=== PATIENT | female | born 1960 | race Caucasian/White ===

== ENCOUNTER 2021-08-22 14:43 | Outpatient (CLI) | payer OTHER, SELFPAY ==
[2021-08-22 20:14] LABS: Hematocrit 39.5 % (37.0-47.0); Hemoglobin 13.3 g/dL (12.0-15.0); Mean Corpuscular HGB Conc 33.7 g/dl (32-36); Mean Corpuscular Hemoglobin 29.9 pg (26-34); Mean Corpuscular Volume 88.8 fl (80-100); Mean Platelet Volume 11.5 fl (7.4-10.4); Platelet Count Result 268 k/mm3 (150-375); Red Blood Count 4.45 M/mm3 (4.2-5.4); Red Cell Distribution Width 11.9 % (11.5-14.5); White Blood Count 6.8 K/mm3 (4.5-10.0)
[2021-08-22 20:28] LABS: Alanine Aminotransferase 17 U/L (4-35); Albumin Level 4.7 g/dL (3.5-5.1); Alkaline Phosphatase 77 U/L (38-126); Anion Gap 8 mmol/L (8-16); Aspartate Amino Transferase 25 U/L (14-36); Bilirubin,Total 0.7 mg/dL (0.2-1.3); Blood Urea Nitrogen 13 mg/dL (7-17); Calcium 9.5 mg/dL (8.4-10.2); Carbon Dioxide 25 mmol/L (22-30); Chloride 107 mmol/L (98-107); Cholesterol 186 mg/dL (0-200); Estimated Glomerular Filt Rate > 60; Glucose 89 mg/dL (65-110); HDL Direct 55 mg/dL; Potassium 3.6 mmol/L (3.4-5.0); Sodium 140 mmol/L (137-145); Triglycerides 208 mg/dL (<150)
[2021-08-22 20:38] LABS: LDL Cholesterol Direct 104 mg/dL
== END 2021-08-22 14:44 | disposition home or self-care (01) ==
PROVIDERS: PCP Family Medicine; Visit Provider Family Medicine
DX: Z00.00 Encounter for general adult medical examination without abnormal findings (principal)
CPT/HCPCS: 36415; 80053; 80061; 85027

== ENCOUNTER 2022-02-01 15:37 | Outpatient (CLI) | payer OTHER, SELFPAY ==
--- NOTE | ~2022-02-01 | XR_ITS ---
XR sacroiliac joints min 3V DATE: 02/01/2022 16:04 INDICATION: Sacrococcygeal disorder TECHNIQUE: AP and bilateral oblique views COMPARISON: None FINDINGS: The pubic symphysis and sacroiliac joints are intact. No fracture, dislocation, erosive tammi nge or ankylosis is noted. IMPRESSION: No significant abnormality Reviewed, dictated and finalized at Location [facility]. Reviewed, dictated and finalized at location A. IMPRESSION: No significant abnormality
--- NOTE | ~2022-02-01 | XR_ITS ---
XR foot LT min 3V DATE: 02/01/2022 16:05 INDICATION: Left anterior foot pain after injury TECHNIQUE: 4 views COMPARISON: None FINDINGS: No fracture or dislocation, periosteal reaction or bone destruction. Joint spaces are prese rved. No erosive changes. No calcaneal enthesopathy. IMPRESSION: No significant abnormality Reviewed, dictated and finalized at location A. IMPRESSION: No significant abnormality
== END 2022-02-01 15:38 | disposition home or self-care (01) ==
LOC: ANHBWCIMG 15:41
PROVIDERS: PCP Family Medicine; Visit Provider Family Medicine
DX: M53.3 Sacrococcygeal disorders, not elsewhere classified (principal); G89.29 Other chronic pain
CPT/HCPCS: 72202; 73630

== ENCOUNTER 2022-08-28 09:53 | Outpatient (CLI) | payer OTHER, SELFPAY ==
--- NOTE | ~2022-08-28 | XR_ITS ---
EXAMINATION: [id number] DATE: 08/28/2022 10:06 INDICATION: Fall. Left posterior lower rib pain. TECHNIQUE: A frontal view of the chest and 2 views on 3 radiographs of the left ribs were obtained. COMPARISON: None. FINDINGS: There is mild scarring at the lung apices. No pleural effusion or pneumothorax. The heart s ize is normal. IMPRESSION: 1. No rib fracture. Reviewed, dictated and finalized at location A. RITIES TRADER IMPRESSION: 1. No rib fracture.
== END 2022-08-28 09:54 | disposition home or self-care (01) ==
LOC: ANHBWCIMG 09:54
PROVIDERS: PCP Family Medicine; Visit Provider Family Medicine
DX: R07.81 Pleurodynia (principal)
CPT/HCPCS: 71101

== ENCOUNTER 2022-09-04 14:46 | Outpatient (CLI) | payer OTHER, SELFPAY ==
--- NOTE | ~2022-09-04 | XR_ITS ---
EXAMINATION: [id number] INDICATION: Pleurodynia TECHNIQUE: Three views of bilateral ribs are obtained. COMPARISON: None available FINDINGS: There are minimal airspace opacities of the left lung base. No pleural effusion or pneumoth orax. The cardiomediastinal silhouette is normal. No displaced rib fracture is seen. IMPRESSION: 1. Minimal left basilar airspace opacity, consistent with atelectasis versus pneumonia. 2. No evidence of displaced rib fracture. Reviewed, dictated and finalized at location B. ON HAND IMPRESSION: 1. Minimal left basilar airspace opacity, consistent with atelectasis versus pn eumonia. 2. No evidence of displaced rib fracture.
== END 2022-09-04 14:47 | disposition home or self-care (01) ==
PROVIDERS: PCP Family Medicine; Visit Provider Family Medicine
DX: R07.81 Pleurodynia (principal); R91.8 Other nonspecific abnormal finding of lung field
CPT/HCPCS: 71110

== ENCOUNTER 2022-11-20 15:27 | Outpatient (CLI) | payer OTHER, SELFPAY ==
[2022-11-20 18:39] LABS: Alanine Aminotransferase 18 U/L (6-35); Albumin Level 4.5 g/dL (3.5-5.1); Alkaline Phosphatase 75 U/L (38-126); Alkaline Phosphatase 76 U/L (38-126); Anion Gap 5 mmol/L (8-16); Aspartate Amino Transferase 28 U/L (14-36); Aspartate Amino Transferase 36 U/L (14-36); Bilirubin,Total 0.6 mg/dL (0.2-1.3); Blood Urea Nitrogen 12 mg/dL (7-17); Calcium 8.9 mg/dL (8.4-10.2); Carbon Dioxide 29 mmol/L (22-30); Chloride 106 mmol/L (98-107); Estimated Glomerular Filt Rate > 60; Glucose 123 mg/dL (65-110); Potassium 3.9 mmol/L (3.4-5.0); Sodium 140 mmol/L (137-145)
[2022-11-20 19:02] LABS: Basophils Absolute Auto 0.1 K/mm3 (0.0-0.1); Basophils Percent Auto 0.8 % (0.2-1.2); Eosinophils Absolute Auto 0.2 K/mm3 (0-0.3); Eosinophils Percent Auto 2.9 % (0-4.4); Hematocrit 40.5 % (37.0-47.0); Immature Granulocyte Absolute 0.02 K/mm3 (0.00-0.031); Immature Granulocyte Percent A 0.3 % (0-0.5); Lymphocytes Absolute Auto 2.15 K/mm3 (0.9-3.2); Lymphocytes Percent Auto 33.3 % (18.3-44.2); Mean Corpuscular HGB Conc 32.1 g/dl (32-36); Mean Corpuscular Hemoglobin 29.5 pg (26-34); Mean Corpuscular Volume 91.8 fl (80-100); Mean Platelet Volume 11.7 fl (7.4-10.4); Monocytes Absolute Auto 0.4 K/mm3 (0.1-0.6); Monocytes Percent Auto 6.7 % (2.6-8.5); Neutrophils Absolute Auto 3.6 K/mm3 (1.3-6.7); Platelet Count Result 289 k/mm3 (150-375); Red Blood Count 4.41 M/mm3 (4.2-5.4); Red Cell Distribution Width 12.2 % (11.5-14.5); White Blood Count 6.5 K/mm3 (4.5-10.0)
== END 2022-11-20 15:28 | disposition home or self-care (01) ==
LOC: ANHBWCLAB 15:28
PROVIDERS: PCP Family Medicine; Visit Provider Nurse Practitioner Family
DX: Z00.00 Encounter for general adult medical examination without abnormal findings (principal); B35.1 Tinea unguium
CPT/HCPCS: 36415; 80053; 80076; 85025

== ENCOUNTER 2023-03-20 14:55 | Outpatient (CLI) | payer OTHER, SELFPAY ==
[2023-03-20 19:05] LABS: Hematocrit 39.6 % (37.0-47.0); Hemoglobin 12.9 g/dL (12.0-15.0); Mean Corpuscular HGB Conc 32.6 g/dl (32-36); Mean Corpuscular Hemoglobin 29.7 pg (26-34); Mean Corpuscular Volume 91.2 fl (80-100); Mean Platelet Volume 11.6 fl (7.4-10.4); Platelet Count Result 272 k/mm3 (150-375); Red Blood Count 4.34 M/mm3 (4.2-5.4); Red Cell Distribution Width 12.4 % (11.5-14.5); White Blood Count 7.8 K/mm3 (4.5-10.0)
[2023-03-20 19:40] LABS: Alanine Aminotransferase 28 U/L (6-35); Albumin Level 4.3 g/dL (3.5-5.1); Alkaline Phosphatase 79 U/L (38-126); Amylase 82 U/L (30-110); Anion Gap 3 mmol/L (8-16); Aspartate Amino Transferase 65 U/L (14-36); Bilirubin,Total 0.6 mg/dL (0.2-1.3); Blood Urea Nitrogen 11 mg/dL (7-17); Calcium 8.6 mg/dL (8.4-10.2); Carbon Dioxide 26 mmol/L (22-30); Chloride 105 mmol/L (98-107); Estimated Glomerular Filt Rate > 60; Glucose 95 mg/dL (65-110); Lipase 177 U/L (23-300); Potassium 4.1 mmol/L (3.4-5.0); Sodium 134 mmol/L (137-145)
== END 2023-03-20 14:56 | disposition home or self-care (01) ==
LOC: ANHBWCLAB 15:00
PROVIDERS: PCP Nurse Practitioner Adult Health; Visit Provider Nurse Practitioner Adult Health
DX: K52.9 Noninfective gastroenteritis and colitis, unspecified (principal)
CPT/HCPCS: 36415; 80053; 82150; 83690; 85027

== ENCOUNTER 2023-09-06 14:55 | Outpatient (CLI) | payer OTHER, SELFPAY ==
[2023-09-06 19:29] LABS: Appearance Urine Clear (Clear); Bacteria Urine None Seen /hpf; Bilirubin Urine Negative (Negative); Blood Urine Negative (Negative); Color Urine Yellow (Yellow); Glucose Urine UA Negative (Negative); Ketones Urine Trace mg/dL (Negative); Leukocyte Esterase Ur Trace LEU/UL (NEGATIVE); Nitrate Urine Negative (Negative); Non Pathogenic Casts 0-2; Protein Urine Negative (Negative); RBC Urine 0-2 /hpf (0-2); Specific Grav Ur 1.021 (1.001-1.035); Squamous Epithelial Cell Urine None seen /hpf (Few); WBC Urine 0-5 /hpf (0-3); pH Urine 5.5 (5.0-9.0)
[2023-09-06 19:37] LABS: Hematocrit 44.5 % (37.0-47.0); Hemoglobin 14.2 g/dL (12.0-15.0); Mean Corpuscular HGB Conc 31.9 g/dl (32-36); Mean Corpuscular Hemoglobin 29.5 pg (26-34); Mean Corpuscular Volume 92.3 fl (80-100); Mean Platelet Volume 11.5 fl (7.4-10.4); Platelet Count Result 354 k/mm3 (150-375); Red Blood Count 4.82 M/mm3 (4.2-5.4); Red Cell Distribution Width 12.1 % (11.5-14.5); White Blood Count 11.6 K/mm3 (4.5-10.0)
[2023-09-06 19:42] LABS: Anion Gap 6 mmol/L (8-16); Blood Urea Nitrogen 17 mg/dL (7-17); Calcium 9.2 mg/dL (8.4-10.2); Carbon Dioxide 29 mmol/L (22-30); Chloride 102 mmol/L (98-107); Estimated Glomerular Filt Rate > 60; Glucose 99 mg/dL (65-110); Potassium 3.9 mmol/L (3.4-5.0); Sodium 137 mmol/L (137-145)
[2023-09-06 19:47] LABS: Add Urine Microscopic? YES
== END 2023-09-06 14:56 | disposition home or self-care (01) ==
LOC: ANHBWCLAB 14:57
PROVIDERS: PCP Nurse Practitioner Adult Health; Visit Provider Nurse Practitioner Adult Health
DX: H93.19 Tinnitus, unspecified ear (principal); R39.9 Unspecified symptoms and signs involving the genitourinary system
CPT/HCPCS: 36415; 80048; 81001; 85027

== ENCOUNTER 2023-11-17 08:01 | Emergency (ER) | payer OTHER, SELFPAY ==
[2023-11-17 08:16] VITALS: BP 153/81; PULSE 70; RESP 16; TEMP 36.6; O2SAT 100
--- NOTE | 2023-11-17 08:16 | ED_ITS ---
HPI - General Adult General Chief complaint: Skin/Abscess/Foreign Body Stated complaint: pos bite on toe,bump on calf Source: patient, RN notes reviewed and old records reviewed Mode of arrival: ambulatory Limitations: no limitations History of Present Illness HPI narrative: 63-year-old female presents to [facility] with complaints of rash on right 3rd toe this started few days ago. Patient states rash is painful. Patient tried athlete's foot medication with no relief. Patient also has rash to back of right leg the patient states is non itchy, nonpainful. Related Data Home Medications Medication Instructions Recorded Confirmed paroxetine HCl 10 mg tablet mg PO 11/17/23 Allergies Allergy/AdvReac Type Severity Reaction Status Date / Time No Known Allergies Allergy Verified 11/17/23 08:15 Review of Systems Constitutional: Constitutional: Reports no additional constitutional complaints, Denies body ache(s), Denies chills, Denies fatigue, Denies fever(s) and Denies headache(s) Eyes: Eyes: Reports no additional eye complaints and Denies blurry vision ENT: Reports system reviewed and no additional complaints, except as documented, Denies vertigo, Denies dizziness, Denies ear discharge, Denies otalgia, Denies facial pain, Denies headache(s), Denies nasal congestion, Denies nasal discharge, Denies sinus pain, Denies sinus pressure and Denies sore throat Cardiovascular: Cardiovascular: Reports no additional cardiovascular complaints, Denies chest pain, Denies chest pain at rest, Denies rapid heart rate and Denies dyspnea Respiratory: Respiratory: Reports no additional respiratory complaints, Denies chest congestion, Denies cough, Denies pain on inspiration, Denies pain with cough and Denies dyspnea Gastrointestinal: Gastrointestinal: Denies abdominal pain, Denies diarrhea, Denies nausea and Denies vomiting Integumentary/Breasts: Skin/Breast: Reports rash Neurologic: Reports system reviewed and no additional complaints, except as documented, Denies vertigo, Denies dizziness and Denies headache(s) Endocrine: Endocrine: Denies fatigue PMFSH Comments At the time of my signature, I reviewed and agree with the nursing past medical, surgical, social, and family history. There is no relevant family history pertinent to the patient complaint. Exam Const: General: cooperative, healthy appearing, no acute distress and well nourished Nutritional Appearance: well nourished Orientation/consci ousness: patient oriented x3 Limitations: no limitations HENMT: Head: normal to inspection and normocephalic Ears: external ears normal Face/Nose/Sinus: normal facial exam Face and sinus: normal facial exam Mouth: Yes Normal oral and palatal mucosa present, Yes oropharynx normal and Yes moist mucous membranes Eyes: General: appearance normal, both eyes and all related structures Sclera: sclerae normal Pupils: Equal, round and reactive pupils present Resp: Effort & Inspection: normal respiratory effort, able to speak in complete sentences, no audible wheezes, no cough, no respiratory distress and no retractions Skin: General skin exam: normal color Rashes: rashes noted ( vesicular rash to right 3rd toe) Other: macular rash to right calf Neuro: General: patient oriented x3 Cranial nerves: Yes Equal, round and reactive pupils present Psych: Appearance: grossly normal Mental Status: mental status grossly normal Speech and movement: Normal speech and movement present Affect: normal affect Course Course Emergency Course: Patient is aware of diagnosis, understands and agrees to treatment plan.? Anticipatory guidance given.? Patient agrees to follow-up as directed and is aware of reasons to seek care at the emergency department. Some parts of this dictation were generated by voice recognition software and may contain typographical and/or grammatical inaccuracies. Level of Care: Express Care Visit Vital Signs Vital signs: Reviewed Medical Decision Making MDM Narrative Medical decision making narrative: patient with rash to back of right leg and right 3rd toe. rash is different in appearance. Will treat for infected insect bite to toe in dermatitis to leg. Patient resting comfortably without signs or symptoms of acute distress, nontoxic appearing, vital signs stable. patient appropriate for discharge home and outpatient care, with instructions on close monitoring, close follow-up, and when to seek emergency care. Discharge instructions reviewed with patient, as well as provided in writing per nursing staff. The instructions also include specific and strict return/GO TO THE ER as well as f/u information. All questions have been answered, and the patient deny any further questions with discharge and discharge plan. Differential Diagnosis Differential Diagnosis: Infected insect bite, cellulitis, contact dermatitis, allergic dermatitis, shingles Medical Records Medical records reviewed: Yes I reviewed the external patient's medical records. Vital Signs Vital Signs: reviewed Lab Data Lab results reviewed: Yes I reviewed the patient's lab results. Discharge Plan Discharge Clinical Impression: Infected insect bite, Dermatitis Patient Disposition: Home, Self-Care Condition: Stable Instructions: Insect Bite or Sting (ED) Additional Instructions: Antibiotic as directed until completed. Apply cream to back of leg. Follow-up with your primary care physician 5-7 days if not improving Go to the emergency room for any worsening or concerning symptoms Patient Language: Malagasy Prescriptions: New cephalexin 500 mg capsule 500 mg PO Q8H 7 Days Qty: 21 0RF triamcinolone acetonide 0.5 % cream 1 applic topical BID 7 Days Qty: 15 0RF No Action paroxetine HCl 10 mg tablet PO Follow-up/Referrals: Lucio Mayorga MD [Primary Care Provider] - 1 Week ( [facility] care follow-up) Time of Disposition: 08:30
== END 2023-11-17 08:36 | disposition home or self-care (01) ==
PROVIDERS: Emergency Provider Registered Nurse; PCP Family Medicine
DX: S90.465A Insect bite (nonvenomous), left lesser toe(s), initial encounter (principal); L08.9 Local infection of the skin and subcutaneous tissue, unspecified; W57.XXXA Bitten or stung by nonvenomous insect and other nonvenomous arthropods, initial encounter
CPT/HCPCS: 99213; G0463

== ENCOUNTER 2023-12-05 14:08 | Outpatient (CLI) | payer OTHER, SELFPAY | END 2023-12-05 14:09 | disposition home or self-care (01) | LOC: ANHBWCAUD 14:09 | PROVIDERS: PCP Family Medicine; Visit Provider Nurse Practitioner Adult Health | DX: H93.11 Tinnitus, right ear (principal); H90.3 Sensorineural hearing loss, bilateral | CPT/HCPCS: 92557; 92567 ==

== ENCOUNTER 2023-12-26 14:14 | Outpatient (CLI) | payer OTHER, SELFPAY | END 2023-12-26 14:15 | disposition home or self-care (01) | PROVIDERS: PCP Nurse Practitioner Adult Health; Visit Provider Nurse Practitioner Adult Health | DX: Z11.3 Encounter for screening for infections with a predominantly sexual mode of transmission (principal) | CPT/HCPCS: 36415; 86695; 86696 ==

== ENCOUNTER 2024-01-30 14:45 | Outpatient (CLI) | payer OTHER, SELFPAY ==
[2024-01-30 19:49] LABS: Appearance Urine Clear (Clear); Bacteria Urine None Seen /hpf; Bilirubin Urine Negative (Negative); Blood Urine Negative (Negative); Color Urine Yellow (Yellow); Glucose Urine UA Negative (Negative); Ketones Urine Negative (Negative); Leukocyte Esterase Ur Trace LEU/UL (Negative); Nitrate Urine Negative (Negative); Non Pathogenic Casts 0-2; Protein Urine Negative (Negative); RBC Urine 0-2 /hpf (0-2); Specific Grav Ur 1.005 (1.001-1.035); Squamous Epithelial Cell Urine None Seen /hpf (Few); Urobilinogen Urine 0.2 mg/dL (<2.0); WBC Urine 0-5 /hpf (0-3); pH Urine 7.5 (5.0-9.0)
[2024-01-30 19:50] LABS: Add Urine Microscopic? YES
== END 2024-01-30 14:46 | disposition home or self-care (01) ==
LOC: ANHBWCLAB 14:46
PROVIDERS: PCP Nurse Practitioner Adult Health; Visit Provider Nurse Practitioner Adult Health
DX: R39.9 Unspecified symptoms and signs involving the genitourinary system (principal)
CPT/HCPCS: 81001; 87086; 87088

== ENCOUNTER 2025-02-26 15:45 | Outpatient (CLI) | payer OTHER, SELFPAY ==
--- OUTSIDE RECORDS SUMMARY | 2025-02-26 15:48 | XMS_ITS | Clinical Summary ---
Author Organization [facility] Address [address] [place] [address] Phone Care Team Providers Care Manager Float Name Role Phone Halley Pino EMILY Primary Care Provider [phone] Allergies Active Allergy Reactions Criticality Noted Date Comments Doxycycline Vomiting Medium 11/07/2018 Medications loratadine (CLARITIN) 10 MG Tablet Take 1 Tab by mouth daily. 30 Tab 2 9 Active albuterol 108 (90 Base) MCG/ACT Aerosol Solution take 2 Puffs by inhalation every 4 hours as needed for Wheezing or Cough (SOB). 8.5 g 0 Active PARoxetine (PAXIL) 10 MG Tablet Take 1 tablet by mouth once daily 30 Tablet 2 Active Active Problems Problem Noted Date Diagnosed Date NATASHA (generalized anxiety disorder) 06/02/2024 Anxiety 06/02/2019 Elevated glucose level 02/17/2019 Skin cancer screening 02/17/2019 Depression 11/22/2018 Immunizations Immunization Administration Dates Next Due Influenza Vaccine 05/09/2016 Family History Medical History Relation Name Comments No Known Problems Brother Alzheimer's Disease Father Breast Cancer Maternal Aunt 1 Cancer Maternal Aunt 2 Breast Cancer Maternal Grandmother No Known Problems Mother 92 and long y healthy Relation Name Status Comments Brother Alive Father Maternal Aunt 1 Maternal Aunt 2 Maternal Grandmother Mother Alive Social History Tobacco Use Types Packs/Day Years Used Date Smoking Tobacco: Former Cigarettes 0.1 20 Smokeless Tobacco: Never Tobacco Cessation:Counseling Given: Not Answered Alcohol Use Standard Drinks/Week Comments Yes 10 (1 standard drink = 0.6 oz pu re alcohol) on occasion PHQ-2 Answer Date Recorded PHQ-2 Score 0 03/27/2019 Education Answer Date Recorded What is the highest level of school you have completed or the highest degree you have received? 12th grade 06/07/2020 Sexually Active Control Partners Comments Yes Male Comments No Sex and Gender Information Value Date Recorded Sex Assigned at Not on file Legal Sex Female 3:02 PM CDT Gender Identity Not on file Sexual Orientation Not on file Last Filed Vital Signs Vital Sign Reading Time Taken Comments Blood Pressure 138/70 11/06/2020 9:34 AM CDT Pulse 42 11/06/2020 9:34 AM CDT Temperature 36.1 C (97 F) 11/06/2020 9:34 AM CDT Respiratory Rate 16 06/03/2020 4:40 PM WIRELESS SALES EXPERT Oxygen Saturation 98% 11/06/2020 9:34 AM CDT Inhaled Oxygen Concentration - - Weight 66.2 kg (146 lb) 06/03/2020 4:40 PM WIRELESS SALES EXPERT Height 164.8 cm (5' 4.9) 06/03/2020 4:40 PM WIRELESS SALES EXPERT Body Mass Index 24.37 06/03/2020 4:40 PM WIRELESS SALES EXPERT Plan of Treatment Health Maintenance Due Date Last Done Comments Hepatitis C Virus (HCV) Screening 1962 TdaP Immunization 1962 HPV/Cotest 02/20/1992 Cologuard 2007 Pneumococcal Immunization (5 0+ years) (1 of 1 - PCV) 02/20/2012 Zoster Immunization (1 of 2) 02/20/2012 Mammogram 04/07/2015 04/07/2014, 03/22/2009 Immunochemical Fecal Occult Blood 08/26/2015 08/26/2014, 08/22/2011 Cervical Cancer Screening (CCS) 11/07/2021 Pap Smear 11/07/2021 11/07/2018, 11/07/2018 SARS-COV-2 Immunization ( season) 2024 06/10/2021, 05/20/2021 Influenza Immunization (#1) 2025 10/0 01/2021, 04/28/2020, 05/09/2016 Colonoscopy 07/30/2026 07/30/2016 Colorectal Cancer Screening 07/30/2026 Respiratory Syncytial Virus (RSV) Immunization (Adult) (1 - 1-dose 75+ series) 2037 Hepatitis B Immunization Aged Out No longer eligible based on patient's age to complete this topic Human Papillomavirus (HPV) Immunization Aged Out No longer eligible b ased on patient's age to complete this topic Meningococcal Immunization (ACWY) Aged Out No longer eligible b ased on patient's age to complete this topic Rotavirus Immunization Aged Out No lo nger eligible based on patient's age to complete this topic Goals Goal Patient Goal Type Associated Problems Recent Progress Patient-Stated? Author ANXIETY Anxiety Improving( 4:02 PM WIRELESS SALES EXPERT) Yes Christine Hsu, [facility] Note: I want to not over think in my relationship Goal/Objective: Decrease reactivity in relationship. Anticipated Time Frame for Goal Completion: 6 months Goal Reviewed with: patient Readiness to change: Ready to change Department associated with goal: [facility] Steps to achieve goal: will attend counseling/psychotherapy sessions at least once monthly at least 6 sessions , utilizing individual and/or group sessions to express thoughts and feelings. to identify, verbalize and process at least three contributing factors/triggers to anxiety and depression. T o identify at least two lifestyle changes/habits. to put into action, at least one lifestyle change/habit, for one month or longer, to reduce and or cope with anxiety and depression. Procedures Procedure Name Priority Date/Time Associated Diagnosis Comments STOOL, OCCULT BLOOD IMMUNOASSAY (IFOB) Routine 08/26/2014 BERENICE SCREENING BILATERAL WITH CAD Routine 04/07/2014 from Last 3 Months or Most Recently Relevant to Health Maintenance Results * STOOL, OCCULT BLOOD IMMUNOASSAY (IFOB) (08/26/2014) Specimen of unknown material (specimen) STOOL SPECIMEN / Unknown us Not On File Provider BODY FLUIDS & STOOLS ORDERA BLES Final Result * BERENICE SCREENING BILATERAL WITH CAD (04/07/2014) Anatomical Region Laterality Modality breast Bilateral Mammography us Not On File Provider IMG MAMMO ORDERABLES Final Result from Last 3 Months or Most Recently Relevant to Health Maintenance Insurance [facility] Care Teams Manager Float Relationship Specialty Start Date End Date Halley Pino APRN [address] [place] [address] PCP - General Advanced Practice Nurse 06/02/24
--- OUTSIDE RECORDS SUMMARY | 2025-02-26 15:48 | XMS_ITS | Clinical Summary ---
Author Organization [facility] Address [address] [place] [address] Care Team Providers Care Actimize Architect Name Role Phone Unavailable Primary Care Provider Unavailabl e Source Comments [facility],non-owned Affiliates and Associated Physician Practices is amultiple site organization consisting of ambulatory clinics and hospital sitesin [place], [place], [place] and [place]. This disclosure is being madepursuant to the Care Everywhere program and may not contain all information available regarding this patient. Last updated 18.[facility] Allergies No known active allergies Medications * Be aware that medications may not be up to date on this document. Alwaysverify current medications with the patient. No known medications Social History Tobacco Use Types Packs/Day Years Used Date Smoking Tobacco: Never Smokeless Tobacco: Never Comments No Sex and Gender Information Value Date Recorded Sex Assigned at Not on file Legal Sex Female 7:41 AM CDT Gender Identity Not on file Sexual Orientation Not on file Last Filed Vital Signs Vital Sign Reading Time Taken Comments Blood Pressure 136/82 02/08/2018 8:43 AM CDT Pulse 81 02/08/2018 8:43 AM CDT Temperature 36.3 C (97.4 F) 02/08/2018 8:43 AM CDT Respiratory Rate - - Oxygen Saturation 97% 02/08/2018 8:43 AM CDT Inhaled Oxygen Concentration - - Weight 63.5 kg (140 lb) 02/08/2018 8:43 AM CDT Height 167.6 cm (5' 6) 02/08/2018 8:43 AM CDT Body Mass Index 22.6 02/08/2018 8:43 AM CDT Plan of Treatment Health Maintenance Due Date Last Done Comments COLOGUARD (AGES 45-75) - COL ON CA SCREENING 1962 COLON MONITORING 1962 COLONOSCOPY - COLON CA SCREENING 1962 CT COLONOGRAPHY - COLON CA SCREENING 1962 Colorectal Cancer Screening 1962 FIT - COLON CA SCREENING 1962 FLEX SIG - COLON CA SCREENING 1962 LIPID TESTING 1962 MAMMOGRAM 1962 HIV SCREENING 1977 HEPATITIS C SCREENING 02/15/1980 DTAP/TDAP/TD VACCINES (1 - Tdap) 1981 PNEUMOCOCCAL VACCINE 50+ (1 of 1 - PCV) 02/20/2012 ZOSTER VACCINE (1 of 2) 02/20/2012 COVID-19 VACCINE (1 - 2023-2 5 season) 2024 DEPRESSION SCREENING 07/30/2024 INFLUENZA VACCINE (#1) 2025 Respiratory Syncytial Virus (RSV) Vaccine Pt: or over 60 yrs (1 - 1-dose 75+ series) 2037 HEPATITIS B VACCINE Aged Out No longe r eligible based on patient's age to complete this topic HIB VACCINE Aged Out No longer eligi ble based on patient's age to complete this topic HPV VACCINE Aged Out No longer eligi ble based on patient's age to complete this topic MENINGOCOCCAL (Group B) VACC INE SHARED DECISION-MAKING Aged Out No longer eligibl e based on patient's age to complete this topic MENINGOCOCCAL GROUPS A/C/Y/W VACCINE Aged Out No longer eligible b ased on patient's age to complete this topic
--- OUTSIDE RECORDS SUMMARY | 2025-02-26 15:48 | XMS_ITS | Clinical Summary ---
Author Organization [facility] [employer] [place] Address [address] [place] [address] [place] [address] Care Team Providers Care Bus And Trolley Inspecting Dispatcher Name Role Phone Lucio Mayorga MD Primary Care Provider [phone] Allergies Active Allergy Reactions Criticality Noted Date Comments Doxycycline Nausea and Vomiting Medium 11/07/2018 Medications loratadine (CLARITIN) 10 mg tablet Take 1 Tablet (10 mg) by mouth daily. 30 Tablet 3 12/08/2019 Active PARoxetine HCl (PAXIL) 10 mg tablet Take 1 Tablet (10 mg) by mouth daily. 90 Tablet 10/03/2023 Active Active Problems Problem Noted Date Diagnosed Date Anxiety 06/02/2019 Elevated glucose level 02/17/2019 Depression 11/22/2018 Encounters Date Type Department Care Team Description 01/20/2025 External Device Data [facility] ABSTRACTION Provider, Abstract 12/18/2024 External Device Data [facility] ABSTRACTION Provider, Abstract 12/17/2024 External Device Data [facility] ABSTRACTION Provider, Abstract 12/16/2024 External Device Data [facility] ABSTRACTION Provider, Abstract from Last 3 Months Immunizations Immunization Administration Dates Next Due Influenza Vaccine Tri Split 4+ Pf Im 05/09/2016 Family History Medical History Relation Name Comments No Known Problems Brother No Known Problems Daughter 1 No Known Problems Daughter 2 Unknown Father Cancer Maternal Grandfather Breast Cancer Maternal Grandmother No Known Problems Mother Unknown Paternal Grandfather Unknown Paternal Grandmother Relation Name Status Comments Brother Alive Daughter 1 Alive Daughter 2 Alive Father Maternal Grandfather Maternal Grandmother Mother Alive Paternal Grandfather Paternal Grandmother Social History Tobacco Use Types Packs/Day Years Used Date Smoking Tobacco: Former Smokeless Tobacco: Never Tobacco Cessation:Counseling Given: Not Answered Alcohol Use Standard Drinks/Week Comments Yes 0 (1 standard drink = 0.6 oz pur e alcohol) occasionally Comments No Sex and Gender Information Value Date Recorded Sex Assigned at Not on file Legal Sex Female 1:12 PM ASSOCIATE MANAGER AFFILIATE MARKETING Gender Identity Not on file Sexual Orientation Not on file Last Filed Vital Signs Vital Sign Reading Time Taken Comments Blood Pressure 110/64 11/07/2024 10:09 AM CDT Pulse 70 10/03/2023 8:52 AM ASSOCIATE MANAGER AFFILIATE MARKETING Temperature 36.8 C (98.3 F) 10/03/2023 8:52 AM ASSOCIATE MANAGER AFFILIATE MARKETING Respiratory Rate 16 10/03/2023 8:52 AM ASSOCIATE MANAGER AFFILIATE MARKETING Oxygen Saturation 100% 10/03/2023 8:52 AM ASSOCIATE MANAGER AFFILIATE MARKETING Inhaled Oxygen Concentration - - Weight 63.5 kg (140 lb) 11/07/2024 10:09 AM CDT Height 162.6 cm (5' 4) 11/07/2024 10:09 AM CDT Body Mass Index 24.03 11/07/2024 10:09 AM CDT Plan of Treatment Health Maintenance Due Date Last Done Comments DTAP/TDAP/TD VACCINES (1 - Tdap) 1981 HPV/Cotest (21-29) 1983 HPV/Cotest (30-65) 02/20/1992 FIT-DNA Q 3 years 2007 FIT/FOBT Q 1 year 2007 Flex Sig/CT Colonography Q 5 years 2007 ZOSTER VACCINE (1 of 2) 02/20/2012 BREAST CANCER SCREENING 04/07/2015 04/07/2014 COLORECTAL SCREENING 07/30/2021 07/30/2011 (Previously completed) Colorectal Cancer Screening 07/30/2021 CERVICAL CANCER SCREENING 11/07/2021 PAP SMEAR 11/07/2021 11/07/2018, 11/07/2018 INFLUENZA VACCINE (#1) 2025 07/09/2018, 2015 RSV VACCINE (60+ or ) (1 - 1-dose 75+ series) 2037 Procedures Procedure Name Priority Date/Time Associated Diagnosis Comments CERV/VAG CYTO SCREEN PAP W/O HPV Routine 11/07/2018 9:11 AM CDT Cervical cancer screening from Last 3 Months or Most Recently Relevant to Health Maintenance Results * CERV/VAG CYTO SCREEN PAP W/O HPV (11/07/2018 9:11 AM CDT) DIAGNOSIS (PAP): Comment [facility] Comment: NEGATIVE FOR INTRAEPITHELIAL LESION OR MALIGNANCY. CELLULAR CHANGES ASSOCIATED WITH ATROPHY ARE PRESENT. ADEQUACY: Comment [facility] Comment: Satisfactory for evaluation. Endocervical component may not be distinguished in cases of atrophy. CLINICIAN PROVIDED ICD10 Comment [facility] Comment:Z12.4 PERFORMED BY (PAP): Comment [facility] Comment:Analisa Billings, Cytotec hnologist (ASCP) RESULT (PAP): . [facility] SEE NOTE (PAP): Comment [facility] Comment: The Pap smear is a screening test designed to aid in the detection of premalignant and malignant conditions of the uterine cervix. It is not a diagnostic procedure and should not be used as the sole means of detecting cervical cancer. Both false-positive and false-negative reports do occur. CYTOLOGY PHOTOGRAPHIC PROCESS WORKER METHODOLOGY Comment [facility] Comment: This liquid based ThinPrep(R) pap test was screened with the use of an image guided system. Genital SWAB OF ENDOCERVIX / Unknown 11/07/2018 9:11 AM CDT 11/07/2018 Narrative [facility] - 11/08/2018 4:36 PM CDT Performed at: [address] [place] [id number] Patrol: Sunshine Alexander MD, Phone: [phone] Specimen Comment: No. of containers..01 ThinPrep Vial us Viv Hoover NP PATHOLOGY/CYTOLOGY [place] GRAY Final Result [facility] [phone] from Last 3 Months or Most Recently Relevant to Health Maintenance Insurance [employer] OPEN ACCESS * Guarantor: [employer] Account Type Relation to Patient Date of Phone Billing Address Corporate Employer ATTN: [employer] [address] [address] Care Teams Bus And Trolley Inspecting Dispatcher Relationship Specialty Start Date End Date Lucio Mayorga MD PCP - General Family Practice 12/14/22
[2025-02-26 18:57] LABS: Hematocrit 39.1 % (37.0-47.0); Hemoglobin 12.8 g/dL (12.0-15.0); Immature Granulocyte Percent A 0.3 % (0-0.5); Lymphocytes Absolute Auto 2.04 K/mm3 (0.9-3.2); Mean Corpuscular HGB Conc 32.7 g/dl (32-36); Mean Corpuscular Hemoglobin 29.5 pg (26-34); Mean Corpuscular Volume 90.1 fl (80-100); Nucleated Red Blood Cells Absolute Auto 0.000 K/mm3 (0.0-0.012); Nucleated Red Blood Cells Perc 0.0 % (0.0-0.2); Platelet Count Result 267 k/mm3 (150-375); Red Blood Count 4.34 M/mm3 (4.2-5.4); White Blood Count 7.9 K/mm3 (4.5-10.0)
[2025-02-26 19:29] LABS: Alanine Aminotransferase 17 U/L (6-35); Albumin Level 4.5 g/dL (3.5-5.1); Alkaline Phosphatase 73 U/L (38-126); Anion Gap 7 mmol/L (4-12); Aspartate Amino Transferase 39 U/L (14-36); Bilirubin,Total 1.0 mg/dL (0.2-1.3); Blood Urea Nitrogen 15 mg/dL (7-17); Calcium 9.3 mg/dL (8.4-10.2); Carbon Dioxide 26 mmol/L (22-30); Chloride 105 mmol/L (98-107); Cholesterol 195 mg/dL (0-200); Estimated Glomerular Filt Rate > 60; Glucose 98 mg/dL (65-110); HDL Direct 50 mg/dL; Magnesium 2.2 mg/dL (1.6-2.3); Potassium 4.1 mmol/L (3.4-5.0); Sodium 138 mmol/L (137-145); Total Protein 7.1 g/dL (6.3-8.2); Triglycerides 110 mg/dL (<150)
[2025-02-26 19:57] LABS: Thyroid Stimulating Hormone 1.100 uIU/mL (0.465-4.680)
== END 2025-02-26 15:46 | disposition home or self-care (01) ==
LOC: ANHBWCLAB 15:46
PROVIDERS: PCP Nurse Practitioner Adult Health; Visit Provider Nurse Practitioner Adult Health
DX: R25.2 Cramp and spasm (principal); R23.3 Spontaneous ecchymoses; Z13.9 Encounter for screening, unspecified; Z00.00 Encounter for general adult medical examination without abnormal findings
CPT/HCPCS: 36415; 80053; 80061; 83735; 84443; 85025

== ENCOUNTER 2025-04-15 16:07 | Outpatient (CLI) | payer OTHER, SELFPAY ==
--- OUTSIDE RECORDS SUMMARY | 2016-01-10 05:20 | XMS_ITS | Continuity of Care Document ---
Author [place] [facility] [place] [address] [place] [address] Phone Care Team Providers Care Javascript Engineer Name Role Phone Jorge Ramirez PA-C Unavailable Unavailable Procedures Procedure Date Office/outpatient visit new Advance Directives Directive Yes / No Effective Date File Name No Information Encounters Encounter Description Practice Location Reason(s) For Visit Diagnoses Date Provider Providers Copied on Encounter Office/outpati ent [place] [facility] [place] [address] [place], [address], [place] tel:[phone] [facility] [facility] No Information James Patel. [address], [place], [id number], [place]. tel:[phone] Family History Family Member Type Diagnosis Age At Onset No Information Payers Payer name Insurance type Covered alliance party ID Authoriza tion(s) No Information Social History Type Description Quantity Date Captured Comments Sex Female Smoking Status No Information Chief Complaint And Reason For Visit No Information Reason For Referral Reason For Referral No Information History Of Present Illness Encounter Date Complaint History Of Prese nt Illness No Information Functional Status Date Functional Assessmen t No Information Instructions Date Instruction Additional Infor mation No Information Assessments Type Assessment Date No Information Patient Care Teams Name Effective Dates (start - stop) Status Members No Information
--- OUTSIDE RECORDS SUMMARY | 2025-04-15 16:36 | XMS_ITS | Clinical Summary ---
Author Organization [facility] Address [address] [place] [address] Care Team Providers Care Regional Airline Pilot Name Role Phone Unavailable Primary Care Provider Unavailabl e Source Comments [facility],non-owned Affiliates and Associated Physician Practices is amultiple site organization consisting of ambulatory clinics and hospital sitesin [place] and [place]. This disclosure is being madepursuant to the Care Everywhere program and may not contain all information available regarding this patient. Last updated 18.[facility] Allergies No known active allergies Medications * [...] 02/20/2012 ZOSTER VACCINE (1 of 2) 02/20/2012 DEPRESSION SCREENING 07/30/2024 COVID-19 VACCINE (1 - 2023-2 5 season) 2025 INFLUENZA VACCINE (#1) 2025 Respiratory Syncytial Virus [...]
--- OUTSIDE RECORDS SUMMARY | 2025-04-15 16:36 | XMS_ITS | Clinical Summary ---
Author Organization [facility] Address [address] [place] [address] Phone Care Team Providers Care Facility Maintenance Supervisor Name Role Phone Halley Pino EMILY Primary Care Provider [phone] Allergies Active Allergy Reactions Criticality Noted Date [...] CDT Respiratory Rate 16 06/03/2020 4:40 PM FRUIT AND VEGETABLE PACKER Oxygen Saturation 98% 11/06/2020 9:34 AM CDT Inhaled Oxygen Concentration - - Weight 66.2 kg (146 lb) 06/03/2020 4:40 PM FRUIT AND VEGETABLE PACKER Height 164.8 cm (5' 4.9) 06/03/2020 4:40 PM FRUIT AND VEGETABLE PACKER Body Mass Index 24.37 06/03/2020 4:40 PM FRUIT AND VEGETABLE PACKER Plan of Treatment Health Maintenance Due Date Last Done Comments Hepatitis C Virus (HCV) Screening 1960 TdaP Immunization 1962 HPV/Cotest 02/20/1992 Cologuard 2007 Pneumococcal Immunization (5 0+ years) (1 of 1 - PCV) 02/20/2012 Zoster Immunization (1 of 2) 02/20/2012 Mammogram 04/07/2015 04/07/2014, 03/22/2009 Immunochemical Fecal Occult Blood 08/26/2015 08/26/2014, 08/22/2011 Cervical Cancer Screening ([facility]) 11/07/2021 Pap Smear 11/07/2021 11/07/2018, 11/07/2018 Influenza Immunization (#1) 03/30/202501/2021, 04/28/2020, 05/09/2016 SARS-COV-2 Immunization ( season) 2025 06/10/2021, 05/20/2021 Colonoscopy 07/30/2026 07/30/2016 Colorectal Cancer Screening 07/30/2026 [...] Patient-Stated? Author ANXIETY Anxiety Improving( 4:02 PM FRUIT AND VEGETABLE PACKER) Yes Christine Hsu, [facility] Note: I want to not over think in my relationship Goal/Objective: Decrease reactivity in relationship. Anticipated Time Frame for Goal Completion: 6 months Goal Reviewed with: patient Readiness to change: Ready to change Department associated with goal: [facility] Steps to achieve goal: [...] Maintenance Insurance [facility] Care Teams Facility Maintenance Supervisor Relationship Specialty Start Date End Date Halley Pino APRN [address] [place] [address] PCP - General Advanced Practice Nurse 06/02/24
--- OUTSIDE RECORDS SUMMARY | 2025-04-15 16:36 | XMS_ITS | Encounter Summary ---
Author Organization [facility] Address [address] [place] [address] Care Team Providers Care Associate [employer] Retail Name Role Phone Lucio Mayorga MD Primary Care Provider [phone] Encounter Details Date Type Department Care Team (Late st Contact Info) Description 04/14/2025 External Device Data [facility] Provider, Abstract NO ADDRESS ON FILE Social History Tobacco Use Types Packs/Day Years Used Date Smoking Tobacco: Former Smokeless Tobacco: Never Alcohol Use Standard Drinks/Week Comments Yes 0 (1 standard drink = 0.6 oz pur e alcohol) occasionally Comments No Sex and Gender Information Value Date Recorded Sex Assigned at Not on file Legal Sex Female 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
--- OUTSIDE RECORDS SUMMARY | 2025-04-15 16:36 | XMS_ITS | Clinical Summary ---
Author Organization [facility] Address [address] [place] [address] [place] [address] Care Team Providers Care Food And Beverage Operations Manager Name Role Phone Lucio Mayorga MD Primary Care Provider [phone] Allergies Active Allergy Reactions Criticality Noted Date [...] Encounters Date Type Department Care Team Description 04/14/2025 External Device Data [facility] ABSTRACTION Provider, Abstract 01/20/2025 External Device Data [facility] ABSTRACTION Provider, [...] on file Legal Sex Female 1:12 PM VB NET DEVELOPER Gender Identity Not on file Sexual Orientation Not on file Last Filed Vital Signs Vital Sign Reading Time Taken Comments Blood Pressure 110/64 11/07/2024 10:09 AM CDT Pulse 70 10/03/2023 8:52 AM VB NET DEVELOPER Temperature 36.8 C (98.3 F) 10/03/2023 8:52 AM VB NET DEVELOPER Respiratory Rate 16 10/03/2023 8:52 AM VB NET DEVELOPER Oxygen Saturation 100% 10/03/2023 8:52 AM VB NET DEVELOPER Inhaled Oxygen Concentration - - Weight 63.5 [...] 11/07/2021 11/07/2018, 11/07/2018 INFLUENZA VACCINE (#1) 2025 05/09/2016 RSV VACCINE (60+ or ) (1 - [...] false-positive and false-negative reports do occur. CYTOLOGY GROUNDHAND METHODOLOGY Comment [facility] Comment: This liquid based ThinPrep(R) pap test was screened with the use of an image guided system. Genital SWAB OF ENDOCERVIX / Unknown 11/07/2018 9:11 AM CDT 11/07/2018 Narrative [facility] - 11/08/2018 4:36 PM CDT Performed at: [address] [place] [id number] College Professor: Sunshine Alexander MD, Phone: [phone] Specimen Comment: No. of containers..01 ThinPrep Vial Viv Hoover NP PATHOLOGY/CYTOLOGY [place] Final Result [facility] [phone] from Last 3 Months or Most Recently Relevant to Health Maintenance Insurance [employer] OPEN [employer]ESS * Guarantor: [employer] Account Type Relation to Patient Date of Phone Billing Address Corporate Employer ATTN: [employer] [address] [address] Care Teams Food And Beverage Operations Manager Relationship Specialty Start Date End Date Lucio Mayorga MD PCP - General Family Practice 12/14/22
[2025-04-15 18:23] LABS: Hematocrit 38.7 % (37.0-47.0); Hemoglobin 12.5 g/dL (12.0-15.0); Mean Corpuscular HGB Conc 32.3 g/dl (32-36); Mean Corpuscular Hemoglobin 29.2 pg (26-34); Mean Corpuscular Volume 90.4 fl (80-100); Platelet Count Result 259 k/mm3 (150-375); Red Blood Count 4.28 M/mm3 (4.2-5.4); White Blood Count 7.9 K/mm3 (4.5-10.0)
[2025-04-15 18:39] LABS: Iron 54 ug/dL (37-170)
[2025-04-15 18:51] LABS: Percent Iron Saturation 16 % (20-50)
[2025-04-15 19:15] LABS: Ferritin 28.30 ng/mL (11.1-264)
[2025-04-15 19:48] LABS: Vitamin B12 430.0 pg/mL (239-931)
== END 2025-04-15 16:08 | disposition home or self-care (01) ==
LOC: ANHBWCLAB 16:08
PROVIDERS: PCP Nurse Practitioner Adult Health; Visit Provider Nurse Practitioner Adult Health
DX: L65.9 Nonscarring hair loss, unspecified (principal); L91.8 Other hypertrophic disorders of the skin
CPT/HCPCS: 36415; 82607; 82728; 82746; 83540; 83550; 85027